=== PATIENT | male | born 1935 | race Two or more races ===

== ENCOUNTER 2018-03-15 21:01 | Inpatient (IN) | payer MEDICARE ==
[~2018-03-15] VITALS: Ht 162.6 cm; Wt 69.2 kg
[2018-03-15 20:40] VITALS: BP 113/71
--- NOTE | 2018-03-15 20:40 | NUR ---
Received patient as a direct admit from [facility]. Accepting Physician is Dr. Cheo Sanchez. Patient was known to have fever with chills and generalized body pain. As this point, patient denies pain or SOB. Vital signs taken, afebrile. No temperature. Ushered patient safely to room. TELE leads placed. NSR. assisted assessment done. Skin intact. Patient is ambulatory with minimal assists. IV on the left FA, patent and intact. Safety initiated. Call light within reach. Will continue to monitor.
--- NOTE | 2018-03-15 21:00 | NUR ---
RIZWANA Levy at bedside. Waiting on new orders. Will continue to monitor.
[2018-03-15] MEDS ORDERED: IV 1/2NS 1000 ML 1,000 ML IV PRN (21:39)
[2018-03-15] MEDS ORDERED: MORPHINE SULFATE 4 MG/1 ML DISP.SYRIN IV PRN (21:45)
[2018-03-15] MEDS ORDERED: Z GUARD REMEDY PASTE 57 GM TUBE TOP PRN (21:45)
[2018-03-15] MEDS ORDERED: ONDANSETRON 4 MG/2 ML VIAL IV PRN (21:45)
[2018-03-15] MEDS ORDERED: HYDROCODONE/APAP 5-325MG TABLET PO PRN (21:45)
[2018-03-15] MEDS ORDERED: TEMAZEPAM 15 MG CAPSULE PO PRN (21:45)
[2018-03-15] MEDS ORDERED: MAGNESIUM HYDROXIDE 30 ML LIQUID UDC PO PRN (21:45)
[2018-03-15] MEDS ORDERED: ENOXAPARIN SODIUM 40 MG/0.4 ML DISP.SYRIN SQ ONE (23:15)
[2018-03-16 00:50] VITALS: BP 95/52
[2018-03-16 04:37] VITALS: BP 107/60
--- NOTE | 2018-03-16 05:49 | NUR ---
No changes t/o shift. TELE SR. On Room Air. Ambulatory with minimal assist. Safety and comfort measures maintained t/o shift. All meds given as ordered. All needs met.
[2018-03-16 06:21] LABS: BASOPHILS % (AUTO) 0.4 % (0.0-2.0); EOSINOPHILS % (AUTO) 0.1 % (0.0-7.0); HEMATOCRIT 33.5 % (36.7-47.1); HEMOGLOBIN 11.7 g/dL (12.5-16.3); LYMPHOCYTES # (AUTO) 0.9 K/uL (20.0-40.0); LYMPHOCYTES % (AUTO) 7.8 % (20.5-51.5); MEAN CORPUSCULAR HEMOGLOBIN 32.4 uug (23.8-33.4); MEAN CORPUSCULAR HGB CONC 35 g/dL (32.5-36.3); MEAN CORPUSCULAR VOLUME 92.9 fL (73.0-96.2); MONOCYTES # (AUTO) 0.8 K/uL (2.0-10.0); NEUTROPHILS # (AUTO) 9.8 K/uL (1.8-8.9); NEUTROPHILS % (AUTO) 84.7 % (38.5-71.5); PLATELET COUNT (AUTO) 169 K/uL (152-348); RED BLOOD CELL COUNT(AUTO) 3.61 MIL/uL (4.06-5.63); WHITE BLOOD COUNT (AUTO) 11.6 K/uL (3.6-10.2)
[2018-03-16] MEDS: PANTOPRAZOLE SODIUM 40 MG TABLET.DR PO SCH (06:30)
[2018-03-16] MEDS: ACETAMINOPHEN 325 MG TABLET PO PRN ×2 (06:55→21:33)
[2018-03-16 06:57] LABS: ALANINE AMINOTRANSFERASE 20 U/L (16-63); ALKALINE PHOSPHATASE 60 U/L (50-136); ASPARTATE AMINOTRANSFERASE 16 U/L (15-37); BILIRUBIN,DIRECT 0.2 mg/dL (0.0-0.2); BILIRUBIN,TOTAL 0.6 mg/dL (0.2-1.0); CARBON DIOXIDE 23 mmol/L (21-32); CHLORIDE 107 mmol/L (98-107); CHOLESTEROL 82 mg/dL (<200); CREATININE 1.3 mg/dL (0.6-1.3); GLUCOSE 93 mg/dL (74-106); HDL CHOLESTEROL 47 mg/dL (40-60); PHOSPHOROUS 3.3 mg/dL (2.5-4.9); POTASSIUM 3.8 mmol/L (3.5-5.1); TOTAL PROTEIN, SERUM 5.4 g/dL (6.4-8.2); TRIGLYCERIDES 17 MG/DL (30-150); UREA NITROGEN, BLOOD 22 mg/dL (7-18)
[2018-03-16 08:00] VITALS: BP 115/68
--- NOTE | 2018-03-16 08:00 | NUR ---
AWAKE ALERT COOPERATEWELL NOPAIN OR FEVER EAT BREAKFAST WELL RESTING QUIET WITH CALL [place] IN REACH
[2018-03-16] MEDS: AMIODARONE HCL 200 MG TABLET PO SCH (08:04)
[2018-03-16] MEDS: LOSARTAN POTASSIUM 50 MG TABLET PO SCH ×2 (08:04→21:33)
[2018-03-16 08:05] LABS: *BILIRUBIN,URIN NEGATIVE (NEGATIVE); *BLOOD, URINE NEGATIVE (NEGATIVE); *CLARITY,URINE CLEAR (CLEAR); *COLOR,URINE YELLOW (YELLOW); *KETONES,URINE NEGATIVE (NEGATIVE); *PROTEIN,URINE NEGATIVE (NEGATIVE); *UROBILINOGEN,URINE 0.2 E.U./dl (NORMAL); LEUKOCYTE ESTERASE ,URINE NEGATIVE (NEGATIVE); NITRITE, URINE NEGATIVE (NEGATIVE); UGLUCOSE NEGATIVE (NEGATIVE)
[2018-03-16] MEDS: OSELTAMIVIR PHOSPHATE 75 MG CAPSULE PO SCH ×2 (09:52→21:33)
--- NOTE | 2018-03-16 10:00 | NUR ---
Srinath CHRISTY SEE PATIENT AND LAB RESULT TODAY ,NEW ORDER IN CHART URINE FOR CULTURE SENT TO LAB
[2018-03-16] MEDS: IV 1/2NS 1000 ML 1,000 ML IV PRN ×2 (10:21→16:29)
[2018-03-16 11:30] VITALS: BP 99/56
[2018-03-16] MEDS ORDERED: AMIO200T4 PO (16:10)
[2018-03-16] MEDS ORDERED: FERR325T28 PO (16:15)
[2018-03-16] MEDS ORDERED: ATOR20TA PO (16:21)
[2018-03-16] MEDS ORDERED: LOSA50TA3 PO (16:21)
[2018-03-16] MEDS ORDERED: APIX5TAB4 PO (16:21)
--- NOTE | 2018-03-16 17:00 | NUR ---
STABLE HEMODYNAMICSTATUS ,NO SOB OR FEVER ,PAIN UNDER CONTROL SAFETY MEASURE PROVIDED CALL LIGHT IN REACH
[2018-03-16 20:00] VITALS: BP 154/70
[2018-03-16] MEDS ORDERED: ATORVASTATIN 20 MG TABLET PO SCH (21:00)
[2018-03-16] MEDS ORDERED: ENOXAPARIN SODIUM 40 MG/0.4 ML DISP.SYRIN SQ SCH (21:00)
[2018-03-16] MEDS: CALCIUM CARBONATE 500 MG TABLET PO SCH (21:33)
[2018-03-17 00:41] VITALS: BP 135/78
[2018-03-17 05:34] LABS: BASOPHILS % (AUTO) 0.6 % (0.0-2.0); CARBON DIOXIDE 23 mmol/L (21-32); CHLORIDE 107 mmol/L (98-107); CREATININE 1.3 mg/dL (0.6-1.3); EOSINOPHILS # (AUTO) 0.1 K/uL (0.0-0.7); EOSINOPHILS % (AUTO) 1.8 % (0.0-7.0); GLUCOSE 94 mg/dL (74-106); HEMATOCRIT 34.5 % (36.7-47.1); LYMPHOCYTES # (AUTO) 1.8 K/uL (20.0-40.0); LYMPHOCYTES % (AUTO) 25.7 % (20.5-51.5); MEAN CORPUSCULAR HEMOGLOBIN 32.1 uug (23.8-33.4); MEAN CORPUSCULAR HGB CONC 35 g/dL (32.5-36.3); MEAN CORPUSCULAR VOLUME 92.4 fL (73.0-96.2); MONOCYTES # (AUTO) 0.7 K/uL (2.0-10.0); MONOCYTES % (AUTO) 9.8 % (0.0-11.0); NEUTROPHILS # (AUTO) 4.4 K/uL (1.8-8.9); NEUTROPHILS % (AUTO) 62.1 % (38.5-71.5); PLATELET COUNT (AUTO) 165 K/uL (152-348); POTASSIUM 3.7 mmol/L (3.5-5.1); RED BLOOD CELL COUNT(AUTO) 3.73 MIL/uL (4.06-5.63); UREA NITROGEN, BLOOD 17 mg/dL (7-18); WHITE BLOOD COUNT (AUTO) 7.1 K/uL (3.6-10.2)
[2018-03-17] MEDS: PANTOPRAZOLE SODIUM 40 MG TABLET.DR PO SCH (06:15)
[2018-03-17] MEDS: IV 1/2NS 1000 ML 1,000 ML IV PRN (06:16)
[2018-03-17] MEDS: AMIODARONE HCL 200 MG TABLET PO SCH (09:11)
[2018-03-17] MEDS: CALCIUM CARBONATE 500 MG TABLET PO SCH (09:11)
[2018-03-17 09:12] VITALS: BP 144/71
[2018-03-17] MEDS: LOSARTAN POTASSIUM 50 MG TABLET PO SCH (09:12)
[2018-03-17] MEDS: OSELTAMIVIR PHOSPHATE 75 MG CAPSULE PO SCH (09:14)
[2018-03-17] MEDS ORDERED: OSEL30CA PO (09:49)
--- NOTE | 2018-03-17 11:00 | NUR ---
Discharge instructions given to patient. Pt verbalized understanding. Prescription given to patient for tamiflu. Pharmacist educated pt regarding all his medications. Pt verbalized understanding. D/c IV . NO sob noted upon discharge. Faxed prescription to [facility] per family request so medicine can be ready upon their arrival. Pt is to f/u with his PMD within 1 week. Pt refused to have any vaccine and them to f/u with their PMD vaccine status.
[2018-03-17] MEDS ORDERED: Medication Not On Formulary EA (Apixaban (Eliquis) 5 MG) PO SCH (21:00)
[2018-03-17] MEDS ORDERED: ENOXAPARIN SODIUM 40 MG/0.4 ML DISP.SYRIN SQ SCH (21:00)
[2018-03-18] MEDS ORDERED: FERROUS SULFATE 325 MG TABEC PO SCH (09:00)
[2018-03-18] MEDS ORDERED: ATORVASTATIN 20 MG TABLET PO SCH (09:00)
[2018-03-18] MEDS ORDERED: AMIODARONE HCL 200 MG TABLET PO SCH (09:00)
== END 2018-03-17 11:00 | disposition home or self-care (01) | DRG 865 ==
LOC: TELE 21:01 → MED 03-17 09:50
PROVIDERS: ADMIT Nurse Practitioner Acute Care; ATTEND Nurse Practitioner Acute Care
DX: B34.9 Viral infection, unspecified (principal); N17.0 Acute kidney failure with tubular necrosis; E44.1 Mild protein-calorie malnutrition; D72.829 Elevated white blood cell count, unspecified; D63.8 Anemia in other chronic diseases classified elsewhere; I48.91 Unspecified atrial fibrillation; I10 Essential (primary) hypertension; E78.5 Hyperlipidemia, unspecified; E83.51 Hypocalcemia; R53.1 Weakness; Z68.26 Body mass index [BMI] 26.0-26.9, adult; E88.09 Other disorders of plasma-protein metabolism, not elsewhere classified
CPT/HCPCS: 36415; 71045; 83605; 83735; 84100; 84443; 85025; 87040; 87086; 87400; J1650; J3490